=== PATIENT | female | born 1970 ===

== ENCOUNTER 2018-11-18 11:21 | Outpatient (CLI) | payer SELFPAY | END 2018-11-18 11:22 | disposition home or self-care (01) | LOC: C.LAB 11:21 | DX: I10 Essential (primary) hypertension (principal) ==

== ENCOUNTER 2019-02-06 12:03 | Outpatient (CLI) | payer SELFPAY | END 2019-02-06 12:04 | disposition home or self-care (01) | LOC: C.LAB 12:03 | DX: N92.1 Excessive and frequent menstruation with irregular cycle (principal); I10 Essential (primary) hypertension ==

== ENCOUNTER 2019-02-16 16:40 | Outpatient (CLI) | payer OTHER, SELFPAY | END 2019-02-16 16:41 | disposition home or self-care (01) | LOC: C.USIC 16:40 | DX: N92.1 Excessive and frequent menstruation with irregular cycle (principal) ==